=== PATIENT | female | born 1965 | race Caucasian/White ===

== ENCOUNTER 2016-09-10 14:35 | Inpatient (IN) | payer OTHER ==
--- NOTE | ~2016-09-10 | HP ---
History And Physical [place] [id number] [place]. [address] NAME: FAHEEM CROWLEY : 63 STATUS : ADM IN [facility]#: [id number] AGE: 51 ADM/REG DATE : 09/10/16 MR#: [id number] REPORT SERV DATE: 09/10/16 DICTATED BY: ZOIE JUAREZ DATE: 09/10/16 REPORT STATUS : Draft TRANSCRIBED BY: MODL DATE: 09/10/16 DATE OF ADMISSION: 09/10/2016 REASON FOR ADMISSION: Right-sided chest heaviness, does though seem to be reproducible upon musculoskeletal palpation, more at the right costophrenic region. 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 HISTORY OF PRESENT ILLNESS: This is a 51-year-old female. She suffers from obesity, insulin-dependent diabetes. Her A1c apparently has been in the 9s in 2012, where she had DKA, was in the 13s. Known history of hypertension, hypothyroidism, likely as a result of a partial thyroidectomy from a thyroid nodule in the past. The patient comes at 1130 hours, has had acute shortness of breath, right-sided chest heaviness that seemed to last more than 20 minutes, was worse with exertion and stress. This seemed mildly relieve with rest. Once the Cardene drip was started, she did have improvement in her chest heaviness. The patient states she has had a mild nonproductive cough. In the past, she had a viral syndrome with a similar cough. The patient denies any fevers or chills. No nausea. No vomiting. No diarrhea. Positive chest pain and chest heaviness as described. Positive shortness of breath as described. She was when she came into the ER 91% on room air, now she is above 96% on 2 L. Noted to have a troponin of 2.2. She has some T-wave inversions in 1 and aVL. Peaked T-waves appear to be in V2 with some early repolarization that appears to have been preserved as well as in V1 from a 2012 EKG. The patient, with discussion with Cardiology, will be catheterization likely tomorrow. The patient says that her sugars are usually up into the 300s at times. REVIEW OF SYSTEMS: Done, see HPI. Otherwise, negative. PAST MEDICAL HISTORY/PAST SURGICAL HISTORY: See above. She does have two C-sections in the past. FAMILY HISTORY: No early family history of CAD or stroke. HOME MEDICATIONS: See MAR. Continue what is relevant. SOCIAL HISTORY: Only secondhand smoke exposure from her father in the distant past. No alcohol. No drug use. OBJECTIVE: VITAL SIGNS: Was 237/111, down to 207/105, went down to about near 110 to 120 after getting Cardene drip at 5, pulse 90, respirations 18, saturating 91% on room air, now of 96% on 2 L. GENERAL: Guarded. HEENT: PERRLA. No scleral icterus. History And Physical [address] [place]. [address] NAME: FAHEEM CROWLEY : 63 STATUS : ADM IN [facility]#: [id number] AGE: 51 ADM/REG DATE : 09/10/16 MR#: [id number] REPORT SERV DATE: 09/10/16 DICTATED BY: ZOIE JUAREZ DATE: 09/10/16 REPORT STATUS : Draft TRANSCRIBED BY: RILEY DATE: 09/10/16 CARDIOVASCULAR: Detected regular rate and rhythm. No murmur. No carotid bruits. RESPIRATORY: Decreased breath sounds bibasilarly. No crackles. No wheezes at this time. ABDOMEN: Nontender, nondistended. Positive bowel sounds. EXTREMITIES: No edema, no ecchymosis. NEURO: GCS 15. A and O x4/4. PSYCH: Mildly anxious. LABORATORY DATA: 12.9 white count, 13.6 hemoglobin, 013702 platelets. BNP 87, 4.2 potassium, 27 bicarb, 0.99 creatinine, 20 BUN, and 140 sodium, 245 sugar. Troponin 2.21. ABG 7.43/34/63 on 21%. CTA did not show any PE, just bibasilar atelectasis likely. EKG, see above. The lateral T-wave inversions appear to be new. ASSESSMENT AND PLAN: 1. Likely ylv-HG-fjcqtxc elevation myocardial infarction. Troponin 2.2, with right chest heaviness; however, was reproducible to musculoskeletal compression. Given risk factors of hypertension and uncontrolled diabetes, I am concerned. 2. Hypertensive urgency. 3. Insulin-dependent diabetes, possible uncontrolled. Last A1c was in the 9s. PLAN: We will go ahead and admit this patient with Dr. Reyna to cardiac tele. Spoke with Dr. Herrera with Cardiology Service because the patient needs to have heart catheterization tomorrow. We will go ahead and make n.p.o. except medications and ice chips. Heparin drip. CV protocol. Carvedilol, losartan, Lipitor, and aspirin full dose. We will defer to Cardiology if they have any different recommendations regarding the ACS medications. We will check a procal regarding this leukocytosis and shortness of breath and may indeed just be cardiac related. We will reduce her insulin requirements. She will be n.p.o. with mild D5 LR. Can always add more. An echo as well. Place on labetalol and hydralazine. This patient had a significant blood pressure reduction from just 5 of Cardene drip. As a result, I am concerned about possible right-sided TX and we will not give any Nitrostat unless Cardiology decides to have so. TSH regarding her history of hypothyroidism as I do not see the patient has any Synthroid as home dose. See rest of my orders. All questions were answered. Took well over 60 minutes to do. Reference [employer] and [employer]. WST/MODL Zoie Juarez DO / [id number] CC: MD Festus Jordan M.D.
--- NOTE | ~2016-09-10 | DS ---
Discharge Summary [facility] [address] [facility] [place]. [address] NAME: FAHEEM CROWLEY : 63 STATUS : ADM IN PAT#: [id number] AGE: 51 ADM/REG DATE : 09/10/16 MR#: [id number] REPORT SERV DATE: 09/12/16 DICTATED BY: WES REYNA DATE: 09/12/16 REPORT STATUS : Draft TRANSCRIBED BY: MODL DATE: 09/12/16 ADMISSION DATE: 09/10/2016 DISCHARGE DATE: 09/12/2016 REASON FOR ADMISSION: Hypertensive emergency and type 2 demand ischemia. HISTORY OF PRESENT ILLNESS: Please refer Dr. Jeremias Bolton's history and physical dated 09/10/2016 for complete details regarding the patient's admission. In brief, the patient was admitted to the Hospitalist Service for what was initially concerning for a non-ST- elevation MS. HOSPITAL COURSE: The patient had an uncomplicated hospital course. She presented with hypertensive emergency and a troponin of 2.2. She has a close followup with Dr. Josue Montejo as an outpatient. It was unclear as to why her blood pressure was initially high as she is typically well controlled on her outpatient regimen. Cardiology was consulted, and with the rising troponin levels, the patient ended up having a left heart cath done by Dr. Araya, which showed clean coronaries, and her rise in troponin was likely due to sudden endocardial injury from her hypertensive emergency. The patient's blood pressure is now controlled on her outpatient regimen. She reached maximal hospitalization, and she will be discharged home today in stable condition. DISCHARGE DIAGNOSES: 1. Hypertensive emergency, now resolved. 2. Type 2 demand ischemia. 3. Chronic palpitations. 4. Hypertensive heart disease. 5. Insulin-dependent diabetes. 6. Morbid obesity. PROCEDURES: Include consultation with [facility] and left heart catheterization. DISCHARGE MEDICATIONS: Include Pravachol 80 mg daily, Alphagan one drop daily, insulin aspart 28 units three times a day, Lasix 20 mg daily, fenofibrate 134 mg daily, insulin Levemir 70 units at bedtime, Lumigan one drop twice a day, losartan 50 mg daily, Lopressor 75 mg twice a day, Lyrica 25 mg at bedtime, pilocarpine drops, and timolol one drop twice a day. FOLLOWUP: The patient will follow up with Dr. Montejo on 09/19/2016 as scheduled. SHIRA/RILEY Wes Reyna MD Discharge Summary [place] [address] [place]. [address] NAME: FAHEEM CROWLEY : 63 STATUS : ADM IN PAT#: [id number] AGE: 51 ADM/REG DATE : 09/10/16 MR#: [id number] REPORT SERV DATE: 09/12/16 DICTATED BY: WES REYNA DATE: 09/12/16 REPORT STATUS : Draft TRANSCRIBED BY: RILEY DATE: 09/12/16 / [id number] CC: MD Festus Jordan M.D.
--- NOTE | ~2016-09-10 | CN ---
Consultation Report [facility] [address] [place]. [address] NAME: FAHEEM ELDRIDGE : 63 STATUS : ADM IN PAT#: [id number] AGE: 51 ADM/REG DATE : 09/10/16 MR#: [id number] REPORT SERV DATE: 09/11/16 DICTATED BY: BIN LOJA DATE: 09/10/16 REPORT STATUS : Draft TRANSCRIBED BY: RILEY DATE: 09/10/16 DATE OF CONSULTATION: 09/10/2016 REASON FOR CONSULTATION: Hypertensive crisis, NSTEMI. PRIMARY LEGAL PROJECT MANAGER: Gerard Montejo M.D. HISTORY OF PRESENT ILLNESS: Ms Eldridge is a 51-year-old female with a history of type 2 diabetes, hypertension, moderate LVH/mild diastolic dysfunction, chronic palpitations (questionable atrial tach on Holter from 2013), and obesity, who presents to [facility] ER today with complaints of dyspnea that started this morning at home. She states that she had been in her usual state of health and taking all of her medications without any noncompliance, up until this morning when she developed dyspnea at rest in her home. She was resting at home after having had breakfast and had not had any change in her usual routine. She notes that she was significantly short of breath, but did not have any other symptoms whatsoever. This persisted, prompting her to present to [facility] for further evaluation and care. She denies having any associated chest pains, pressures, exertional symptoms in the recent days to weeks, loss of consciousness or dizziness. She has been taking all her medications including her antihypertensives without any noncompliance or difficulty. ALLERGIES: NO KNOWN DRUG ALLERGIES. PAST MEDICAL HISTORY: As above. SOCIAL HISTORY: The patient lives at home with her . She is fully functional and independent under normal circumstances. She has never smoked, denies drinking alcohol or doing drugs currently. FAMILY HISTORY: Negative for heart disease. HOME MEDICATIONS: Include, 1. Bimatoprost ophthalmic drops. 2. Brimonidine ophthalmic drops. 3. Fenofibrate 134 mg p.o. daily. 4. Lasix 20 mg p.o. daily. 5. NovoLog. 6. Levemir. 7. Cozaar 50 mg p.o. daily. 8. Lopressor 75 mg p.o. b.i.d. 9. Pravastatin 80 mg p.o. daily. 10.Lyrica 25 mg p.o. q.h.s. 11.Timolol ophthalmic drops and pilocarpine ophthalmic drops. PHYSICAL EXAMINATION: Consultation Report [place] [address] [place]. [address] NAME: FAHEEM ELDRIDGE : 63 STATUS : ADM IN [facility]#: [id number] AGE: 51 ADM/REG DATE : 09/10/16 MR#: [id number] REPORT SERV DATE: 09/11/16 DICTATED BY: BIN LOJA DATE: 09/10/16 REPORT STATUS : Draft TRANSCRIBED BY: IRLEY DATE: 09/10/16 VITAL SIGNS: BP 237/111, (currently 180/100); HR 90; temperature 98.1. GENERAL: Well developed, well nourished, no acute distress. NEURO: Awake, alert and oriented x3; no focal deficits, appropriate mood. HEENT: Moist mucous membranes, anicteric sclerae, no nasal discharge. NECK: No JVD, no carotid bruit. LUNGS: Clear to auscultation bilaterally, no wheezes, rales or rhonchi. CV: Regular rhythm, normal S1/S2, no murmurs, rubs or gallops. ABD: Soft, non-tender, non-distended, no rebound or guarding. EXT: No pitting edema, normal distal pulses. SKIN: Warm, dry and intact; no rash. PERTINENT TEST FINDINGS: CT of the chest with no PE and mild left basilar atelectasis. Chest x-ray without acute cardiopulmonary process. ABG: PaO2 of 63 on 2 L, pH 7.3, pCO2 of 34. BNP 87, potassium 4.2, creatinine 0.99, GFR 66, glucose 245. Troponin 2.2. Magnesium 2.3. Hemoglobin 13.6, platelets 491. INR 1.02. EKG with sinus rhythm. Left ventricular hypertrophy. Normal mean QRS axis. Repolarization changes secondary to LVH on lateral T-wave inversions. Stress test from 2013 with stage I exercise showed no perfusion defects on imaging. Echocardiogram from 2014 with normal left ventricular systolic function. EF 65%. Moderate LVH and mild diastolic dysfunction. IMPRESSION AND PLAN: Ms Eldridge is a 51-year-old female with multiple cardiovascular risk factors including type 2 diabetes, hypertension, hyperlipidemia, and obesity, who presents with hypertensive crisis as well as this disproportionately elevated troponin at 2.2, concerning for ischemic heart disease. Accordingly, I have the following recommendations for problem below: 1. Hypertensive crisis: Manage per primary. Titrate IV drip to reduce her blood pressure accordingly over the next 12 to 24 hours. 2. Non-ST elevation myocardial infarction: Troponin 2.2. Trend troponin, CK, CK-MB q.6 hours over the next 24 hours. Check an a.m. EKG. Make her n.p.o. after midnight for a coronary angiography tomorrow with possible percutaneous coronary intervention. I have discussed the risks and benefits of this procedure including, but not limited to myocardial infraction, , stroke, kidney injury, and she verbalized understanding and it is okay with proceeding. An echocardiogram. Dosed with aspirin, statin, and beta tom. Acute coronary syndrome orders set. 3. Palpitations, chronic: This is what she was seeing Dr. Montejo for. Plans were to get a cardiac stress test to rule out ischemic heart disease as a possible etiology here. Proceed as per #2. In addition, we will review recent Holter, which she reportedly completed a few weeks ago. 4. Diabetes: Per primary care physician. Consultation Report [address] [place]. [address] NAME: FAHEEM ELDRIDGE : 63 STATUS : ADM IN [facility]#: [id number] AGE: 51 ADM/REG DATE : 09/10/16 MR#: [id number] REPORT SERV DATE: 09/11/16 DICTATED BY: BIN LOJA DATE: 09/10/16 REPORT STATUS : Draft TRANSCRIBED BY: RILEY DATE: 09/10/16 HENRY/RILEY Bin Loja MD / [id number] CC: MD Festus Jordan M.D.
[2016-09-10 13:54] LABS: BASOPHILS 0.4 %; BASOPHILS ABSOLUTE 0.05 10/3/uL (0.0-0.16); EOSINOPHILS 1.9 %; EOSINOPHILS ABSOLUTE 0.25 10/3/uL (0.0-0.53); HEMATOCRIT 41.9 % (36.0-48.0); HEMOGLOBIN 13.6 g/dL (12.0-16.0); IMMATURE GRANULOCYTES 0.6 %; IMMATURE GRANULOCYTES ABSOLUTE 0.08 10/3/uL (0.0-0.11); LYMPHOCYTES 20.2 %; LYMPHOCYTES ABSOLUTE 2.61 10/3/uL (0.67-4.30); MEAN CORPUS HGB CONC 32.5 g/dL (32.0-36.0); MEAN CORPUSCULAR HEMOGLOB 27.5 pg (26.0-34.0); MEAN CORPUSCULAR VOLUME 84.6 fL (80-100); MEAN PLATELET VOLUME 10.7 fL (9.2-13.0); MONOCYTES 4.1 %; MONOCYTES ABSOLUTE 0.53 10/3/uL (0.21-1.20); NEUTROPHILS 72.8 %; NEUTROPHILS ABSOLUTE 9.37 10/3/uL (2.02-8.40); PLATELET COUNT 491 10/3/uL (150-400); RBC DISTRIBUTION WIDTH 14.2 % (12.0-16.0); RED CELL COUNT 4.95 10/6/uL (4.0-5.6); WHITE BLOOD CELLS 12.9 10/3/uL (4.5-10.5)
[2016-09-10 13:55] LABS: ER CBC TAT 0 Hrs 07 Mins; MANUAL DIFF NO %
[2016-09-10 14:05] LABS: PARTIAL THROMBO TIME 27.1 SEC (22.5-37.2); PROTIME (NOT ORD) 12.8 SEC (12.0-14.5)
[2016-09-10 14:09] LABS: BUN (BLOOD UREA NITROGEN) 20 MG/DL (6-23); CALCIUM, SERUM 9.5 MG/DL (8.5-10.4); CHEST PAIN PROFILE TAT 0 Hrs 22 Mins; CHLORIDE, SERUM 104 MMOL/L (96-112); CO2 (CARBON DIOXIDE) 27 MMOL/L (24-34); CREATININE 0.99 MG/DL (0.55-1.02); GFR AFRICAN AMERICAN 76 ML/MIN (>=60); GFR NON AFRICAN AMERICAN 66 ML/MIN (>=60); GLUCOSE, SERUM 245 MG/DL (60-99); POTASSIUM, SERUM 4.2 MMOL/L (3.5-5.3); SODIUM, SERUM 140 MMOL/L (135-148); TROPONIN I 2.21 NG/ML (<0.05)
[2016-09-10 14:14] LABS: B NATRIURETIC PEPTIDE (BNP) 86.5 PG/ML (< 100.0)
[~2016-09-10 14:35] MED LIST: ALPHAGAN P0.1 % OPH; AMARYL4 PO; CEFADROXIL1 GM PO; COZ50 PO; DURACEF PO; DURICEF PO; L20 PO; LEVEMIR SC; LOFIBRA134 MG PO; LUMIGAN2.5 ML OPH; LYRICA25 PO; NOVOLOG SC; PILOCARPINE 2% OPH; PRIN5 PO; TIMOLOL MAL0.5 % OPH; TRADJENTA5 MG PO
[2016-09-10] MEDS ORDERED: PRAVACHOL80 MG PO (14:36)
[2016-09-10] MEDS ORDERED: LOP25 PO (14:36)
[2016-09-10 14:39] LABS: BE (BASE EXCESS) -1.8 MEQ/L (0 +/- 2.5); INSTRUMENT SERIAL # 8087; PCO2 (CO2 TENSION) 34 MMHG (35-45); PO2 (O2 TENSION) 63 MMHG (79-93); pH 7.43 (7.37-7.43)
[2016-09-10 14:40] LABS: ALLENS TEST Pos; CARBOXYHEMOGLOBIN 1.3 % (0-3); HCO3 (ACTUAL BICARBONATE) 21.8 MEQ/L (23-27); HEMOBLOGIN CONTENT 13.6 G/DL (12-16); O2 CONTENT 17.4 VOL% (18-24); SAMPLE Arterial
[2016-09-10 20:30] LABS: A/G RATIO 0.9 (0.7-1.9); ALBUMIN 3.9 G/DL (3.5-5.0); ALKALINE PHOSPHATASE 192 U/L (45-117); GLOBULIN 4.5 G/DL (2.5-4.1); SGOT(AST) 65 U/L (5-40); SGPT(ALT) 87 U/L (5-65); TOTAL BILIRUBIN 8.4 MG/DL (0-1.2); TOTAL PROTEIN 8.4 G/DL (6.0-8.5)
[2016-09-10 20:41] LABS: PHOSPHORUS, SERUM 3.3 MG/DL (2.5-4.5); T4 (THYROXINE) TOTAL 8.5 MCG/DL (4.5-12.0)
[2016-09-10 20:54] LABS: ULTRASENSITIVE TSH 0.045 MCIU/ML (0.358-3.740)
[2016-09-10 21:20] LABS: CK-MB 6.5 NG/ML
[2016-09-10 21:23] LABS: TROPONIN I 2.16 NG/ML (<0.05)
[2016-09-10 21:58] LABS: GLYCOHEMOGLOBIN (HbA1c) 9.4 % (4.7-6.1)
[2016-09-10 22:50] LABS: PROCALCITONIN 0.12 ng/mL (<0.5)
[2016-09-11 02:54] LABS: BASOPHILS 0.4 %; BASOPHILS ABSOLUTE 0.05 10/3/uL (0.0-0.16); EOSINOPHILS 2.7 %; EOSINOPHILS ABSOLUTE 0.33 10/3/uL (0.0-0.53); HEMOGLOBIN 12.2 g/dL (12.0-16.0); IMMATURE GRANULOCYTES 0.4 %; IMMATURE GRANULOCYTES ABSOLUTE 0.05 10/3/uL (0.0-0.11); LYMPHOCYTES 36.6 %; MEAN CORPUS HGB CONC 33.5 g/dL (32.0-36.0); MEAN CORPUSCULAR HEMOGLOB 28.4 pg (26.0-34.0); MEAN CORPUSCULAR VOLUME 84.7 fL (80-100); MEAN PLATELET VOLUME 10.7 fL (9.2-13.0); MONOCYTES 3.2 %; MONOCYTES ABSOLUTE 0.38 10/3/uL (0.21-1.20); NEUTROPHILS 56.7 %; PLATELET COUNT 404 10/3/uL (150-400); RBC DISTRIBUTION WIDTH 14.4 % (12.0-16.0)
[2016-09-11 02:58] LABS: HEMATOCRIT 36.4 % (36.0-48.0); MANUAL DIFF NO %
[2016-09-11 02:59] LABS: BUN (BLOOD UREA NITROGEN) 22 MG/DL (6-23); CALCIUM, SERUM 9.3 MG/DL (8.5-10.4); CHLORIDE, SERUM 105 MMOL/L (96-112); CO2 (CARBON DIOXIDE) 24 MMOL/L (24-34); CREATININE 1.06 MG/DL (0.55-1.02); GFR AFRICAN AMERICAN 70 ML/MIN (>=60); GFR NON AFRICAN AMERICAN 60 ML/MIN (>=60); GLUCOSE, SERUM 284 MG/DL (60-99); HDL CHOLESTEROL 57 MG/DL (> 49); PHOSPHORUS, SERUM 3.6 MG/DL (2.5-4.5); SODIUM, SERUM 142 MMOL/L (135-148); T4 (THYROXINE) TOTAL 8.5 MCG/DL (4.5-12.0)
[2016-09-11 03:00] LABS: CHOL/HDL RATIO(NOT ORDER) 5.3 (0-5); CHOLESTEROL 302 MG/DL (< 200); CK-MB 3.9 NG/ML; CPK 114 U/L (0-200); NON-HDL CHOLESTEROL 245 MG/DL (< 160); TRIGLYCERIDE 549 MG/DL (< 150); TROPONIN I 1.97 NG/ML (<0.05)
[2016-09-11 06:34] LABS: ASCORBIC ACID (UR NOT ORDER) NEG (NEG); BILIRUBIN, URINE NEGATIVE (NEG); KETONE, URINE NEGATIVE (NEG); LEUKOCYTE ESTERASE(NOT OR NEG (NEG); WBC (NOT ORDERED) (RFLEX) 2 (0-5)
[2016-09-11 08:55] LABS: CPK 100 U/L (0-200); T4 (THYROXINE) TOTAL 7.2 MCG/DL (4.5-12.0)
[2016-09-11 08:56] LABS: CK-MB 3.9 NG/ML; TROPONIN I 1.75 NG/ML (<0.05)
[2016-09-11 17:59] LABS: CK-MB 5.3 NG/ML; CKMB INDEX (NOT ORD) 4.4; T4 (THYROXINE) TOTAL 9.3 MCG/DL (4.5-12.0); TROPONIN I 1.83 NG/ML (<0.05)
[2016-09-12 07:12] LABS: BASOPHILS 0.3 %; BASOPHILS ABSOLUTE 0.03 10/3/uL (0.0-0.16); EOSINOPHILS 1.7 %; EOSINOPHILS ABSOLUTE 0.19 10/3/uL (0.0-0.53); HEMATOCRIT 39.1 % (36.0-48.0); HEMOGLOBIN 12.9 g/dL (12.0-16.0); IMMATURE GRANULOCYTES 0.4 %; IMMATURE GRANULOCYTES ABSOLUTE 0.05 10/3/uL (0.0-0.11); LYMPHOCYTES 24.5 %; LYMPHOCYTES ABSOLUTE 2.79 10/3/uL (0.67-4.30); MEAN CORPUSCULAR HEMOGLOB 27.6 pg (26.0-34.0); MEAN CORPUSCULAR VOLUME 83.7 fL (80-100); MEAN PLATELET VOLUME 10.5 fL (9.2-13.0); MONOCYTES 5.1 %; MONOCYTES ABSOLUTE 0.58 10/3/uL (0.21-1.20); NEUTROPHILS ABSOLUTE 7.74 10/3/uL (2.02-8.40); PLATELET COUNT 441 10/3/uL (150-400); RBC DISTRIBUTION WIDTH 14.3 % (12.0-16.0); RED CELL COUNT 4.67 10/6/uL (4.0-5.6); WHITE BLOOD CELLS 11.4 10/3/uL (4.5-10.5)
[2016-09-12 07:15] LABS: MANUAL DIFF NO %
[2016-09-12 07:23] LABS: BUN (BLOOD UREA NITROGEN) 24 MG/DL (6-23); CALCIUM, SERUM 9.7 MG/DL (8.5-10.4); CHLORIDE, SERUM 101 MMOL/L (96-112); CO2 (CARBON DIOXIDE) 25 MMOL/L (24-34); CREATININE 1.14 MG/DL (0.55-1.02); GFR AFRICAN AMERICAN 64 ML/MIN (>=60); GFR NON AFRICAN AMERICAN 55 ML/MIN (>=60); GLUCOSE, SERUM 269 MG/DL (60-99); PHOSPHORUS, SERUM 4.1 MG/DL (2.5-4.5); POTASSIUM, SERUM 4.1 MMOL/L (3.5-5.3); SODIUM, SERUM 140 MMOL/L (135-148)
== END 2016-09-12 11:48 | disposition home or self-care (01) | DRG 287 ==
LOC: ER 14:35 → 7NO 17:48
PROVIDERS: Emergency Medicine; Internal Medicine; Nurse Practitioner; Student in an Organized Health Care Education/Training Program
PROC: 4A023N7 Measurement of Cardiac Sampling and Pressure, Left Heart, Percutaneous Approach (ICD-10-PCS; principal; 2016-09-11)
PROC: B2111ZZ Fluoroscopy of Multiple Coronary Arteries using Low Osmolar Contrast (ICD-10-PCS; 2016-09-11)
PROC: B2151ZZ Fluoroscopy of Left Heart using Low Osmolar Contrast (ICD-10-PCS; 2016-09-11)
DX: I16.1 Hypertensive emergency (principal); E66.01 Morbid (severe) obesity due to excess calories; I24.8 Other forms of acute ischemic heart disease; Z68.31 Body mass index [BMI] 31.0-31.9, adult; H40.9 Unspecified glaucoma; R00.2 Palpitations; E11.9 Type 2 diabetes mellitus without complications; Z79.4 Long term (current) use of insulin
CPT/HCPCS: 36600; 71010; 71275; 80048; 80053; 80061; 81001; 82150; 82550; 82553; 82805; 82962; 83036; 83690; 83735; 83880; 84100; 84145; 84436; 84443; 84484; 85025; 85610; 85730; 87040; 93005; 93458; 96374; 96375; 99152; 99285; A9270-GY; C1769; C1887; C1894; J0360; J2250; J3010; Q9967